=== PATIENT | male | born 1980 ===

== ENCOUNTER 2019-10-14 22:33 | Outpatient (REF) | payer MEDICAID, SELFPAY ==
[2019-10-18 10:49] LABS: SARS-CoV-2 RNA Undetected (Undetected); SARS-CoV-2 Specimen Source Nasopharynx
== END 2019-10-14 22:53 ==
LOC: NCHCN 22:33
PROVIDERS: Visit Provider Nurse Practitioner Family
DX: Z11.59 Encounter for screening for other viral diseases (principal)
CPT/HCPCS: U0003

== ENCOUNTER 2020-02-28 15:08 | Outpatient (REF) | payer MEDICAID, SELFPAY ==
[2020-03-01 21:19] LABS: COVID-19 RT-PCR Result NEGATIVE (Negative)
== END 2020-02-28 15:28 ==
LOC: NCHCN 15:08
PROVIDERS: PCP Nurse Practitioner Family; Visit Provider Nurse Practitioner Family
DX: Z11.59 Encounter for screening for other viral diseases (principal)
CPT/HCPCS: U0003